=== PATIENT | male | born 1995 | race Two or more races ===

== ENCOUNTER 2023-06-27 07:48 | Emergency (ER) | payer OTHER, MEDICAID ==
[~2023-06-27] VITALS: Ht 182.9 cm; Wt 114.3 kg
[2023-06-27 09:48] LABS: Basophils # (auto) 0 10 ^3/uL (0-0.2); Basophils % (auto) 0.5 % (0.0-2.0); Eosinophils # (auto) 0.3 10 ^3/uL (0-0.8); Eosinophils % (auto) 3.8 % (0.0-7.0); Hematocrit 48.2 % (41.0-53.0); Hemoglobin 16.4 g/dL (13.5-17.5); Lymphocytes # (auto) 2.7 10 ^3/uL (0.4-5.4); Lymphocytes % (auto) 38.1 % (10.0-50.0); Mean Corpuscular Hemoglobin 29.5 pg (28.0-32.0); Mean Corpuscular Hgb Conc. 34.1 g/dL (32.0-36.0); Mean Corpuscular Volume 86.5 fL (80.0-100.0); Monocytes # (auto) 0.4 10 ^3/uL (0-1.3); Neutrophils # (auto) 3.7 10 ^3/uL (1.6-8.6); Neutrophils % (auto) 51.6 % (37.0-80.0); Nucleated Red Blood Cells % 0.4 %; Red Blood Cells 5.57 10^6/uL (4.5-5.90); Red Cell Distribution Width 13.4 % (11.8-14.3); White Blood Cell 7.1 10^3/uL (4.4-10.8)
[2023-06-27 10:32] LABS: Alanine Aminotransferase 33 U/L (7-40); Albumin 4.7 g/dL (3.2-4.8); Alkaline Phosphatase 87 U/L (46-116); Anion Gap 6.4 (5-15); Aspartate Aminotransferase 17 U/L (13-40); BUN/Creatinine Ratio 10.3 (10.0-20.0); Blood Urea Nitrogen 8 mg/dL (9-23); Calcium 9.4 mg/dL (8.5-10.1); Carbon Dioxide 27.6 mmol/L (20-30); Chloride 106 mmol/L (98-107); Glucose 101 mg/dL (74-106); Potassium 3.8 mmol/L (3.5-5.1); Sodium 140 mmol/L (136-145); Total Protein 7.3 g/dL (5.7-8.2)
[2023-06-27] MEDS ORDERED: FAMOTIDINE INJECTION 40 MG in SODIUM CHL 0.9% 100 ML IV ONE (10:45)
[2023-06-27] MEDS ORDERED: PANTOPRAZOLE 40mg/50ML NS AE 50 ML IV ONE (11:00)
[2023-06-27] MEDS ORDERED: PANTOPRAZOLE 80 MG in SODIUM CHL 0.9% 100 ML IV ONE (11:00)
[2023-06-27 11:08] LABS: INR 1.03 (0.9-1.15); Prothrombin Time 10.8 sec (9.3-11.8)
[2023-06-27 14:00] VITALS: BP 136/73; PULSE 87; RESP 16; O2SAT 95
[2023-06-27] MEDS ORDERED: CIME-52 PO (16:14)
[2023-06-27] MEDS ORDERED: ZOFR4T PO (16:14)
== END 2023-06-27 17:00 | disposition home or self-care (01) ==
LOC: ER 07:48
DX: K92.1 Melena (principal); R10.13 Epigastric pain; Z88.2 Allergy status to sulfonamides
CPT/HCPCS: 36415; 71045; 74176; 80053; 83690; 85025; 85610; C9113; J3490

== ENCOUNTER 2024-08-30 02:51 | Inpatient (IN) | payer OTHER, MEDICAID ==
[~2024-08-30] VITALS: Ht 182.9 cm; Wt 106.0 kg
[2024-08-30] VITALS (7 sets, daily range): BP systolic 111–123; BP diastolic 68–69; PULSE 61–89; RESP 15–20; TEMP 97.9–98.8; O2SAT 96–97
[~2024-08-30 02:51] MED LIST: CIME-52 PO; ZOFR4T PO
--- NOTE | 2024-08-30 03:05 | ED.PDOC ---
General HPI Comments A 29 year old male presents to the ED with the chief complaint of RUQ pain onset today. Patient states he had In n Out for dinner and began playing video games when he began experiencing RUQ pain that radiates to his RT flank, nausea and vomiting. Patient tried to have a bowel movement but was not able to due to the pain. He denies any past medical history. No other symptoms or modifying factors present at this time. Chief Complaint: Flank Pain Time Seen by MD: 02:58 Primary Care Provider: ARNOLD Wyman notes: Medications, Allergies Allergies: Coded Allergies: Sulfa Antibiotics (Verified Allergy, Severe, 12/19/20) Home Meds Active Scripts Ondansetron Odt 4MG Tab (ZOFRAN PO) 4 Mg Tb, 4 MG PO Q8HPRN PRN for 7 Days, #21 TAB ODT TAB-DISSOLVE IN MOUTH, THEN SWALLOW Prov:OLIVIA DOMINGO MD 06/27/23 Cimetidine (Cimetidine) 400 Mg Tab, 400 MG PO [id number] PRN for 15 Days, #30 TAB Prov:OLIVIA DOMINGO MD 06/27/23 Mode of Arrival: Ambulatory Severity: Moderate Timing: Hours Duration: Since onset Prehospital treatment: None Location: Abdomen, (R) Flank associated signs and symptoms: Abdominal Pain, Nausea, Vomiting, Flank Pain Past Medical History PAST MEDICAL HISTORY: Denies Family History Family History: Reviewed,noncontributory to illness Social History Smoker: Non-Smoker Alcohol: Occasionally Drugs: Denies Drug Use Lives In: Home Constitutional: denies: chills, diaphoresis, fatigue, fever, malaise, sweats, weakness, others EENTM: denies: blurred vision, double vision, ear bleeding, ear discharge, ear drainage, ear pain, ear ringing, eye pain, eye redness, hearing loss, mouth pain, mouth swelling, nasal discharge, nose bleeding, nose congestion, nose pain, photophobia, tearing, throat pain, throat swelling, voice changes, others Respiratory: denies: cough, hemoptysis, orthopnea, SOB at rest, shortness of breath, SOB with excertion, stridor, wheezing, others Cardiovascular: denies: chest pain, dizzy spells, diaphoresis, Dyspnea on exertion, edema, irregular heart beat, left arm pain, lightheadedness, palpitations, PND, syncope, others Gastrointestinal: reports: abdominal pain, nausea, vomiting; denies: abdomen distended, blood streaked bowels, constipated, diarrhea, dysphagia, difficulty swallowing, hematemesis, melena, poor appetite, poor fluid intake, rectal bleeding, rectal pain, others Genitourinary: reports: flank pain; denies: burning, dysuria, frequency, hematuria, incontinence, penile discharge, penile sore, pain, testicle pain, testicle swelling, urgency, others Neurological: denies: dizziness, fainting, headache, left sided numbness, left sided weakness, numbness, paresthesia, pre-existing deficit, right sided numbness, right sided weakness, seizure, speech problems, tingling, tremors, weakness, others Musculoskeletal: denies: back pain, gout, joint pain, joint swelling, muscle pain, muscle stiffness, neck pain, others Integumetry: denies: bruises, change in color, change in hair/nails, dryness, laceration, lesions, lumps, rash, wounds, others Allergic/Immunocompromised: denies: Difficulty Healing, Frequent Infections, Hives, Itching, others Hematologic/Lymphatic: denies: anemia, blood clots, easy bleeding, easy bruising, swollen glands, others Endocrine: denies: excessive hunger, excessive sweating, excessive thirst, excessive urination, flushing, intolerance to cold, intolerance to heat, unexplained weight gain, unexplained weight loss, others Psychiatric: denies: anxiety, bipolar disorder, depression, hopeless, panic disorder, schizophrenia, sleepless, suicidal, others All Other Systems: Reviewed and Negative Physical Exam General Appearance: Moderate Distress, Normal, Other (appears uncomfortable) HEENT: Normal ENT Inspection, Pharynx Normal, TMs Normal Neck: Full Range of Motion, Non-Tender, Normal, Normal Inspection Respiratory: Chest Non-Tender, Lungs Clear, No Accessory Muscle Use, No Respiratory Distress, Normal Breath Sounds Cardiovascular: No Edema, No JVD, No Murmur, No Gallop, Normal Peripheral Pulses, Regular Rate/Rhythm Breast Exam: Deferred Gastrointestinal: No Organomegaly, Non Tender, No Pulsatile Mass, Normal Bowel Sounds, Soft Genitalia: Deferred Pelvic: Deferred Rectal: Deferred Extremities: No calf tenderness, Normal capillary refill, Normal inspection, Normal range of motion, Non-tender, No pedal edema Musculoskeletal : Apperance: Normal Neurologic: Alert, bandmill operator II-XII nml as Tested, No Motor Deficits, Normal Affect, Normal Mood, No Sensory Deficits Cerebellar Function: Normal Reflexes: Normal Skin: Dry, Normal Color, Warm Lymphatic: No Adenopathy Was a procedure done? Was a procedure done?: No Differential Diagnosis Kidney stone (Female): N/A Kidney stone (Male): Pyelonephritis, Urinary obstruction, Urolithiasis, Urinary tract infection Penile/Scrotal: N/A Urinary Problem (Male): N/A Urinary Problem (Female): N/A X-Ray, Labs, Meds, VS Vital Signs Date Time Temp Pulse Resp B/P (MAP) Pulse Ox O2 Delivery O2 Flow Rate FiO2 08/30/24 03:10 97.6 89 20 128/94 (105) 97 97.6 08/30/24 03:10 89 20 97 Room Air* 0 21 08/30/24 03:00 97.6 89 20 128/94 (105) 97 Lab Test 08/30/24 03:29 08/30/24 03:00 Range/Units White Blood Count 11.1 H 4.4-10.8 10^3/uL Red Blood Count 5.54 4.5-5.90 10^6/uL Hemoglobin 16.7 13.5-17.5 g/dL Hematocrit 48.5 41.0-53.0 % Mean Corpuscular Volume 87.7 80.0-100.0 fL Mean Corpuscular Hemoglobin 30.1 28.0-32.0 pg Mean Corpuscular Hemoglobin Concent 34.3 32.0-36.0 g/dL Red Cell Distribution Width 13.5 11.8-14.3 % Platelet Count 317 140-450 10^3/uL Mean Platelet Volume 7.7 6.9-10.8 fL Neutrophils (%) (Auto) 80.8 H 37.0-80.0 % Lymphocytes (%) (Auto) 14.3 10.0-50.0 % Monocytes (%) (Auto) 3.2 0.0-12.0 % Eosinophils (%) (Auto) 1.4 0.0-7.0 % Basophils (%) (Auto) 0.3 0.0-2.0 % Neutrophils # (Auto) 8.9 H 1.6-8.6 10 ^3/uL Lymphocytes # (Auto) 1.6 0.4-5.4 10 ^3/uL Monocytes # (Auto) 0.4 0-1.3 10 ^3/uL Eosinophils # (Auto) 0.2 0-0.8 10 ^3/uL Basophils # (Auto) 0 0-0.2 10 ^3/uL Nucleated Red Blood Cells 0.0 % Sodium Level 139 136-145 mmol/L Potassium Level 3.4 L 3.5-5.1 mmol/L Chloride Level 106 98-107 mmol/L Carbon Dioxide Level 24 20-31 mmol/L Anion Gap 9 5-15 Blood Urea Nitrogen 8 L 9-23 mg/dL Creatinine 0.92 0.700-1.30 mg/dL Glomerular Filtration Rate Calc 116 >90 mL/min BUN/Creatinine Ratio 8.7 L 10.0-20.0 Serum Glucose 123 H 74-106 mg/dL Calcium Level 10.0 8.7-10.4 mg/dL Urine Color Yellow Yellow Urine Clarity Turbid H Clear Urine pH 5.0 5.0-9.0 Urine Specific [place] 1.035 1.001-1.035 Urine Protein 1+ H Negative Urine Ketones Negative Negative Urine Blood 2+ H Negative /uL Urine Nitrite Negative Negative Urine Bilirubin Negative Negative Urine Urobilinogen 2 H Negative mg/dL Urine Leukocyte Esterase Negative Negative /uL Urine RBC 1 0 - 3 /hpf Urine WBC 1 0 - 3 /hpf Urine Squamous Epithelial Cells Few <5 /hpf Urine Bacteria None seen None Seen /hpf Urine Mucus Moderate None Seen Urine Glucose Normal Normal mg/dL Current Medications Medications (Trade) Dose Ordered Sig/Incoencio Route Start Time Stop Time Status Last Admin Sodium Chloride 1,000 ml @ 1,000 mls/hr Q1H ONCE IV 08/30/24 03:00 08/30/24 03:59 DC 08/30/24 03:09 Ondansetron HCl (Zofran) 4 mg ONCE ONCE IV 08/30/24 03:00 08/30/24 03:03 DC 08/30/24 03:09 Ketorolac Tromethamine (Toradol Injection) 15 mg ONCE ONCE IV 08/30/24 03:00 08/30/24 03:03 DC 08/30/24 03:09 Tamsulosin HCl (Flomax) 0.4 mg ONCE ONCE PO 08/30/24 03:00 08/30/24 03:03 DC 08/30/24 03:09 Time of 1ST Reevaluation: 03:28 Reevaluation 1ST: Unchanged Patient Education/Counseling: Diagnosis, Treatment, Prognosis Family Education/Counseling: No Family Present Departure 1 Departure Time of Disposition: 04:45 (Patient presented with abdominal pain that was concerning for possible appendicits, gastritis, cholecystitis, colitis, gastroenteritis, sbo, or orther possible surgical emergency. Data: 1. I ordered and reviewed the result of at least 3 labs including a CBC, BMP, and Urinalysis. 2. I independently interpreted the following tests: CT Abdoment and Pelvis is concerning for a large right kidney stone _ .Risk:This patient has a high risk of morbidity due to further diagnostic testing or treatment and may suffer from an acute abdominal process disorder. Workup reveals a large right kidney stone and hydronephrosis. and patient should be admitted for further workup. and possible expert consultation. ) Impression: Primary Impression: Renal colic on right side Additional Impressions: Hydronephrosis Qualified Codes: N13.2 - Hydronephrosis with renal and ureteral calculous obstruction Flank pain Disposition: ADMITTED INPATIENT Admit to: Med Surg Condition: Serious Critical Care Note Critical Care Time?: Yes Critical care comment: Intractable abdominal pain Authorized and Performed by: Marcia Peters MD Total critical care time: Approximately 34 minutes Due to a high probability of clinically significant, life threatening deterioration, the patient required my highest level of preparedness to intervene emergently and I personally spent this critical care time directly and personally managing the patient. This critical care time included obtaining a history; examining the patient; pulse oximetry; ordering and review of studies; arranging urgent treatment with development of a management plan; evaluation of patient's response to treatment; frequent reassessment; and, discussions with other providers. This critical care time was performed to assess and manage the high probability of imminent, life-threatening deterioration that could result in multi-organ failure. It was exclusive of separately billable procedures and treating other patients and teaching time. Please see my other sections and the rest of the note for further information on patient assessment and treatment. Stability Stability form required: No I personally scribed for MARCIA PETERS MD ([email or web address]) on 08/30/24 at 03:05. Electronically submitted by Lisa Garcia ([email or web address]). MARCIA PETERS MD Aug 30, 2024 03:05
[2024-08-30] MEDS: TAMSULOSIN HYDROCHLORIDE 0.4 MG CAP PO ONE (03:09)
[2024-08-30] MEDS: ONDANSETRON HCL 4 MG/2 ML VIAL IV ONE ×2 (03:09→10:44)
[2024-08-30] MEDS: SODIUM CHLORIDE 0.9% 1,000 ML IV ONE (03:09)
[2024-08-30] MEDS: KETOROLAC TROMETH 30 MG/ML 1ML VIAL IV ONE ×2 (03:09→10:44)
[2024-08-30 03:11] LABS: Urine Bacteria None Seen /hpf (None Seen)
[2024-08-30 03:27] LABS: Urine Blood 2+ /uL (Negative); Urine Clarity Turbid (Clear); Urine Color Yellow (Yellow); Urine Mucus MODERATE (None Seen); Urine Protein, UAD 1+ (Negative); Urine Specific Gravity 1.035 (1.001-1.035); Urine Urobilinogen 2 mg/dL (Negative); Urine WBC 1 /hpf (0 - 3)
[2024-08-30 03:55] LABS: Basophils # (auto) 0 10 ^3/uL (0-0.2); Basophils % (auto) 0.3 % (0.0-2.0); Eosinophils # (auto) 0.2 10 ^3/uL (0-0.8); Eosinophils % (auto) 1.4 % (0.0-7.0); Hematocrit 48.5 % (41.0-53.0); Hemoglobin 16.7 g/dL (13.5-17.5); Lymphocytes # (auto) 1.6 10 ^3/uL (0.4-5.4); Lymphocytes % (auto) 14.3 % (10.0-50.0); Mean Corpuscular Hemoglobin 30.1 pg (28.0-32.0); Mean Corpuscular Hgb Conc. 34.3 g/dL (32.0-36.0); Mean Corpuscular Volume 87.7 fL (80.0-100.0); Monocytes # (auto) 0.4 10 ^3/uL (0-1.3); Monocytes % (auto) 3.2 % (0.0-12.0); Neutrophils # (auto) 8.9 10 ^3/uL (1.6-8.6); Neutrophils % (auto) 80.8 % (37.0-80.0); Platelet Count (auto) 317 10^3/uL (140-450); Red Blood Cells 5.54 10^6/uL (4.5-5.90); Red Cell Distribution Width 13.5 % (11.8-14.3); White Blood Cell 11.1 10^3/uL (4.4-10.8)
[2024-08-30 04:11] LABS: Chloride 106 mmol/L (98-107); Potassium 3.4 mmol/L (3.5-5.1); Sodium 139 mmol/L (136-145)
[2024-08-30 04:12] LABS: Anion Gap 9 (5-15); Carbon Dioxide 24 mmol/L (20-31)
[2024-08-30 04:17] LABS: BUN/Creatinine Ratio 8.7 (10.0-20.0); Blood Urea Nitrogen 8 mg/dL (9-23); Glucose 123 mg/dL (74-106)
--- NOTE | 2024-08-30 04:36 | DVH ---
Examination: ABPL CLINICAL INDICATION: right flank pain COMPARISON: None. CONTRAST USED: None. TECHNIQUE: A plain CT study of the abdomen and pelvis was performed with 5 mm thin slices, following ALARA (As Low As Reasonably Achievable) principles. Multiplanar reconstructions were obtained. FINDINGS: CT Abdomen: Lung Base: The evaluation of the lung bases demonstrates no focal infiltrates or pleural effusion. Unenhanced Liver: The liver is normal in size, with no evidence of intrahepatic biliary dilatation. Unenhanced Spleen: There is borderline splenomegaly. The limitations of the unenhanced study should be considered in evaluating the spleen. Gallbladder: The gallbladder is normal, with no intrinsic abnormalities. The common bile duct is no t dilated. Unenhanced Pancreas: The pancreas is normal in size and shape, with no focal lesions seen. The perip ancreatic fat planes are preserved. Retroperitoneum: Both adrenal glands are normal in size and morphology. No significant retroperiton eal lymphadenopathy is present. The kidneys are normal in size, however, a 7 x 4 mm calculus is observed in the right upper ureter, s een on (image #52 of series 2). This is associated with moderate hydroureter and hydronephrosis prox imal to the calculus on the right side. Stomach and Bowel: The bowel loops are unremarkable, with no evidence of ascites. Skeletal System: Mild scoliosis of the lumbar spine is observed. The lumbar spine is otherwise unre markable. The dorsolumbar spine and pelvic bones show no other abnormalities. Vessels: The aorta, IVC, and mesenteric vessels cannot be fully evaluated on this unenhanced CT scan . CT Pelvis: Appendix: The appendix is visualized and appears unremarkable. Colon: Mild colonic diverticulosis is noted without signs of diverticulitis. Bladder: The urinary bladder is empty and unremarkable. Pelvic Organs: The prostate appears normal. No pelvic lymphadenopathy or abnormal fluid collection is identified. IMPRESSION: 1. Approximately 7 x 4 mm calculus in the right upper ureter with associated moderate hydroureter an d hydronephrosis on the right side. 2. Borderline splenomegaly, with limitations due to the unenhanced nature of the scan. 3. Mild colonic diverticulosis without signs of diverticulitis. 4. Mild scoliosis of the lumbar spine. Electronically Signed 08/30/2024 04:29 Jose Arriola
[2024-08-30] MEDS: MORPHINE SULFATE 4 MG/ML SYR/VIAL IV ONE (05:10)
[2024-08-30] MEDS: SODIUM CHLORIDE 0.9% 1,000 ML IV SCH (10:45)
[2024-08-30] MEDS ORDERED: ONDANSETRON HCL 4 MG/2 ML VIAL IV PRN (10:45)
--- NOTE | 2024-08-30 10:45 | DVHHP2 ---
History of Present Illness Reason for Visit: Right flank pain History of Present Illness This 29-year-old male with no significant past medical history, presented in ED with a chief complaint of right flank pain. The patient reports symptoms started last night, was having hard time urination when something "pop" on right side was heard while voiding. Denies fever, chills, hematuria, or other acute symptoms. Past Medical History Denies Past Surgical History Denies Family History Reviewed, non-contributory to the management of this case. Past Social History The patient lives at home, denies smoking, alcohol or illicit drugs abuse. Review of Systems Constitutional: Yes: Malaise; No: Fever, Chills, Sweats, Weakness, Other Eyes: No: Pain, Vision change, Conjunctivae inflammation, Eyelid inflammation, Other, Redness ENT: No: Ear pain, Ear discharge, Nose pain, Nose discharge, Nose congestion, Mouth pain, Mouth swelling, Throat pain, Throat swelling, Other Respiratory: No: Cough, Dry, Shortness of breath, SOB with excertion, Wheezing, Hemoptysis, Pleuritic Pain, Sputum, Wheezing, Other Cardiovascular: No: Chest Pain, Palpitations, Orthopnea, Paroxysmal Noc. Dyspnea, Edema, Lt Headedness, Other Gastrointestinal: No: Nausea, Vomiting, Abdominal Pain, Diarrhea, Constipation, Melena, Hematochezia, Other Genitourinary: No Dysuria, No Frequency, No Incontinence; Hematuria; No Retention; Other (Flank pain) Musculoskeletal: No: other, neck pain, shoulder pain, arm pain, back pain, hand pain, leg pain, foot pain Skin: No: Rash, Lesions, Jaundice, Bruising, Other Allergies: Coded Allergies: Sulfa Antibiotics (Verified Allergy, Severe, 12/19/20) Exam Vital Signs Vital Signs Date Time Temp Pulse Resp B/P (MAP) Pulse Ox O2 Delivery O2 Flow Rate FiO2 08/30/24 09:00 87 18 127/87 (100) 97 08/30/24 07:20 Room Air* 0 21 08/30/24 05:00 98.7 98.7 General Appearance: Alert, Oriented X3, Cooperative, mild distress HEENT: Atraumatic, PERRLA, EOMI Respiratory: Clear to auscultation, Normal air movement Cardiovascular: Regular rate, Normal S1, Normal S2 Abdominal: Normal bowel sounds, Soft, No tenderness, Other (Right CVA tenderness) Extremities: No clubbing, No cyanosis, No edema Skin: No rashes, No breakdown, No significant lesion Neuro: Normal gait, Normal speech, Strength at 5/5 X4 ext Psych/Mental Status: Mental status NL Labs/Xrays Labs Test 08/30/24 03:29 08/30/24 03:00 Range/Units White Blood Count 11.1 H 4.4-10.8 10^3/uL Red Blood Count 5.54 4.5-5.90 10^6/uL Hemoglobin 16.7 13.5-17.5 g/dL Hematocrit 48.5 41.0-53.0 % Mean Corpuscular Volume 87.7 80.0-100.0 fL Mean Corpuscular Hemoglobin 30.1 28.0-32.0 pg Mean Corpuscular Hemoglobin Concent 34.3 32.0-36.0 g/dL Red Cell Distribution Width 13.5 11.8-14.3 % Platelet Count 317 140-450 10^3/uL Mean Platelet Volume 7.7 6.9-10.8 fL Neutrophils (%) (Auto) 80.8 H 37.0-80.0 % Lymphocytes (%) (Auto) 14.3 10.0-50.0 % Monocytes (%) (Auto) 3.2 0.0-12.0 % Eosinophils (%) (Auto) 1.4 0.0-7.0 % Basophils (%) (Auto) 0.3 0.0-2.0 % Neutrophils # (Auto) 8.9 H 1.6-8.6 10 ^3/uL Lymphocytes # (Auto) 1.6 0.4-5.4 10 ^3/uL Monocytes # (Auto) 0.4 0-1.3 10 ^3/uL Eosinophils # (Auto) 0.2 0-0.8 10 ^3/uL Basophils # (Auto) 0 0-0.2 10 ^3/uL Nucleated Red Blood Cells 0.0 % Sodium Level 139 136-145 mmol/L Potassium Level 3.4 L 3.5-5.1 mmol/L Chloride Level 106 98-107 mmol/L Carbon Dioxide Level 24 20-31 mmol/L Anion Gap 9 5-15 Blood Urea Nitrogen 8 L 9-23 mg/dL Creatinine 0.92 0.700-1.30 mg/dL Glomerular Filtration Rate Calc 116 >90 mL/min BUN/Creatinine Ratio 8.7 L 10.0-20.0 Serum Glucose 123 H 74-106 mg/dL Calcium Level 10.0 8.7-10.4 mg/dL Urine Color Yellow Yellow Urine Clarity Turbid H Clear Urine pH 5.0 5.0-9.0 Urine Specific [place] 1.035 1.001-1.035 Urine Protein 1+ H Negative Urine Ketones Negative Negative Urine Blood 2+ H Negative /uL Urine Nitrite Negative Negative Urine Bilirubin Negative Negative Urine Urobilinogen 2 H Negative mg/dL Urine Leukocyte Esterase Negative Negative /uL Urine RBC 1 0 - 3 /hpf Urine WBC 1 0 - 3 /hpf Urine Squamous Epithelial Cells Few <5 /hpf Urine Bacteria None seen None Seen /hpf Urine Mucus Moderate None Seen Urine Glucose Normal Normal mg/dL PROCEDURE(s): ABPL - CT AB PEL WO CON-NO ORAL OR IV REASON: right flank pain ORDER NUMBER(s): [id number], ACCESSION NUMBER(s): [id number] Examination: ABPL CLINICAL INDICATION: right flank pain COMPARISON: None. CONTRAST USED: None. TECHNIQUE: A plain CT study of the abdomen and pelvis was performed with 5 mm thin slices, following ALARA (As Low As Reasonably Achievable) principles. Multiplanar reconstructions were obtained. FINDINGS: CT Abdomen: Lung Base: The evaluation of the lung bases demonstrates no focal infiltrates or pleural effusion. Unenhanced Liver: The liver is normal in size, with no evidence of intrahepatic biliary dilatation. Unenhanced Spleen: There is borderline splenomegaly. The limitations of the unenhanced study should be considered in evaluating the spleen. Gallbladder: The gallbladder is normal, with no intrinsic abnormalities. The common bile duct is not dilated. Unenhanced Pancreas: The pancreas is normal in size and shape, with no focal lesions seen. The peripancreatic fat planes are preserved. Retroperitoneum: Both adrenal glands are normal in size and morphology. No significant retroperitoneal lymphadenopathy is present. The kidneys are normal in size, however, a 7 x 4 mm calculus is observed in the right upper ureter, seen on (image #52 of series 2). This is associated with moderate hydroureter and hydronephrosis proximal to the calculus on the right side. Stomach and Bowel: The bowel loops are unremarkable, with no evidence of ascites. Skeletal System: Mild scoliosis of the lumbar spine is observed. The lumbar spine is otherwise unremarkable. The dorsolumbar spine and pelvic bones show no other abnormalities. Vessels: The aorta, IVC, and mesenteric vessels cannot be fully evaluated on this unenhanced CT scan. CT Pelvis: Appendix: The appendix is visualized and appears unremarkable. Colon: Mild colonic diverticulosis is noted without signs of diverticulitis. Bladder: The urinary bladder is empty and unremarkable. Pelvic Organs: The prostate appears normal. No pelvic lymphadenopathy or abnormal fluid collection is identified. IMPRESSION: 1. Approximately 7 x 4 mm calculus in the right upper ureter with associated moderate hydroureter and hydronephrosis on the right side. 2. Borderline splenomegaly, with limitations due to the unenhanced nature of the scan. 3. Mild colonic diverticulosis without signs of diverticulitis. Assessment/Plan Assessment/Plan # right flank pain # right hydronephrosis # acute cystitis Admit to medical unit Pain control--nsaids, morphine Alpha carol --tamsulosin Urology consult Urine and blood culture Ceftriaxone until cultures # nausea and vomiting Antiemetic IVF # obesity Lifestyle modification counseled with diet, regular exercise, weight loss Medical plan discussed with patient and RN Plan discussed with: Patient Date of Service: Aug 30, 2024 Billing Provider: LILIAN BARRETT Common Visit Codes: 45068-[id number] INP/OBS CARE (HIGH) LILIAN BARRETT Aug 30, 2024 10:45
[2024-08-30] MEDS: cefTRIAXone 1GM/50ML D5W 50 ML IV ONE (17:02)
[2024-08-30] MEDS: TAMSULOSIN HYDROCHLORIDE 0.4 MG CAP PO SCH (18:15)
[2024-08-30] MEDS: MORPHINE SULFATE 4 MG/ML SYR/VIAL IV PRN (18:21)
[2024-08-30] MEDS: KETOROLAC TROMETH 30 MG/ML 1ML VIAL IV PRN (23:28)
[2024-08-31 01:00] VITALS: BP 111/65; PULSE 67; RESP 18; TEMP 98.4; O2SAT 97
[2024-08-31 05:00] VITALS: BP 99/55; PULSE 64; RESP 18; TEMP 98.2; O2SAT 99
[2024-08-31 06:42] LABS: Basophils # (auto) 0 10 ^3/uL (0-0.2); Basophils % (auto) 0.4 % (0.0-2.0); Eosinophils # (auto) 0.3 10 ^3/uL (0-0.8); Eosinophils % (auto) 3.2 % (0.0-7.0); Hematocrit 41.7 % (41.0-53.0); Hemoglobin 14.1 g/dL (13.5-17.5); Lymphocytes # (auto) 2.6 10 ^3/uL (0.4-5.4); Lymphocytes % (auto) 31.6 % (10.0-50.0); Mean Corpuscular Hemoglobin 29.9 pg (28.0-32.0); Mean Corpuscular Hgb Conc. 33.9 g/dL (32.0-36.0); Mean Corpuscular Volume 88.2 fL (80.0-100.0); Monocytes # (auto) 0.7 10 ^3/uL (0-1.3); Neutrophils # (auto) 4.6 10 ^3/uL (1.6-8.6); Neutrophils % (auto) 56.8 % (37.0-80.0); Nucleated Red Blood Cells % 0.1 %; Platelet Count (auto) 261 10^3/uL (140-450); Red Blood Cells 4.73 10^6/uL (4.5-5.90); Red Cell Distribution Width 13.3 % (11.8-14.3); White Blood Cell 8.2 10^3/uL (4.4-10.8)
[2024-08-31 07:30] VITALS: RESP 16
[2024-08-31] MEDS: cefTRIAXone 1GM/50ML D5W 50 ML IV SCH (08:59)
--- NOTE | 2024-08-31 10:15 | DVHINCON2 ---
Date of service: Aug 31, 2024 Referring Physician hospitalist Reason for Consultation obstructing ureteral stone History of Present Illness History Source: Patient, RN Notes, MD Notes Exam Limitations: No limitations HPI 30 yo male with right flank pain associated with n/v since last night. C/o dysuria as well. CT A/P NC shows right sided mid ureteral calculus 7x4 mm with mild to moderated upstream hydronephrosis. Home Meds Active Scripts Ondansetron Odt 4MG Tab (ZOFRAN PO) 4 Mg Tb, 4 MG PO Q8HPRN PRN for 7 Days, #21 TAB ODT TAB-DISSOLVE IN MOUTH, THEN SWALLOW Prov:OLIVIA DOMINGO MD 06/27/23 Cimetidine (Cimetidine) 400 Mg Tab, 400 MG PO [id number] PRN for 15 Days, #30 TAB Prov:OLIVIA DOMINGO MD 06/27/23 Past Medical History Patient Family History: Patient reports no known family medical history. Review of Systems Gastrointestinal: Nausea, Vomiting Genitourinary: Dysuria, Pain H&P Exam Vital Signs Vital Signs Date Time Temp Pulse Resp B/P (MAP) Pulse Ox O2 Delivery O2 Flow Rate FiO2 08/31/24 05:00 98.2 64 18 99/55 (70) 99 98.2 08/30/24 20:00 Room Air* 0 21 General Appeara: Well developed, Well nourished, Normal Appearance Pulmonary/Respiratory: Normal inspection, Normal breath sounds, Chest non- tender, Lungs clear Cardiovascular/Chest: Normal inspection, Regular rate, Normal Rhythm Neuro/Mental St: Alert, Oriented Appearance: Appropriate appearance, Appropriate insight Eye contact/ Speech: Cooperative, Good eye contact, Normal speech Skin Exam: Normal inspection, Normal color, Warm/dry Labs/Xrays [address] [address] Ph: [phone] DIAGNOSTIC IMAGING Diagnostic Imaging Report : [id number] Signed PATIENT: PAKO KO ACCT: [id number] UNIT: [id number] : 1995 LOC: [facility] ROOM / BED: 0244ADS / 5 AGE / SEX: 29 / M ADM STATUS: ADM IN SERVICE 1015 ORDERING PHYSICIAN: ROSA HENNESSY NP PROCEDURE(s): KIDUS - KIDNEY REASON: hydronephrosis ORDER NUMBER(s): [id number], ACCESSION NUMBER(s): [id number] RENAL ULTRASOUND CLINICAL HISTORY: hydronephrosis TECHNIQUE: Multiple ultrasound images of the kidneys and bladder were obtained. COMPARISON: None FINDINGS: There is a 7 mm echogenic focus at the right ureterovesical junction. A small calculus is not excluded. The right ureteral jet is not seen. There is mild right hydronephrosis. There is no sonographic evidence of nephrolithiasis. The right kidney measures 12.3 cm in length. The left kidney measures 12.4 cm. There is no left renal nephrolithiasis or hydronephrosis. The bladder appears within normal limits without significant post void residual. The calculated prostate volume is 24.3 cc. IMPRESSION: 1. 7 mm echogenic focus of the right ureterovesical junction may represent a small calculus. 2. Mild right renal hydronephrosis. HS:Y ATED BY: ZIA BARRIOS MD DICTATED DATE/TIME: 08/31/241132 SIGNED BY: ZIA BARRIOS MD SIGNED DATE/TIME: 08/31/24 113 CC: [place] [address] Ph: [phone] DIAGNOSTIC IMAGING Diagnostic Imaging Report : [id number] Signed PATIENT: PAKO KO ACCT: [id number] UNIT: [id number] : 1995 LOC: ER ROOM / BED: / AGE / SEX: 29 / M ADM STATUS: REG ER SERVICE 0300 ORDERING PHYSICIAN: MARCIA LANTIGUA MD PROCEDURE(s): ABPL - CT AB PEL WO CON-NO ORAL OR IV REASON: right flank pain ORDER NUMBER(s): [id number], ACCESSION NUMBER(s): [id number] Examination: ABPL CLINICAL INDICATION: right flank pain COMPARISON: None. CONTRAST USED: None. TECHNIQUE: A plain CT study of the abdomen and pelvis was performed with 5 mm thin slices, following ALARA (As Low As Reasonably Achievable) principles. Multiplanar reconstructions were obtained. FINDINGS: CT Abdomen: Lung Base: The evaluation of the lung bases demonstrates no focal infiltrates or pleural effusion. Unenhanced Liver: The liver is normal in size, with no evidence of intrahepatic biliary dilatation. Unenhanced Spleen: There is borderline splenomegaly. The limitations of the unenhanced study should be considered in evaluating the spleen. Gallbladder: The gallbladder is normal, with no intrinsic abnormalities. The common bile duct is not dilated. Unenhanced Pancreas: The pancreas is normal in size and shape, with no focal lesions seen. The peripancreatic fat planes are preserved. Retroperitoneum: Both adrenal glands are normal in size and morphology. No significant retroperitoneal lymphadenopathy is present. The kidneys are normal in size, however, a 7 x 4 mm calculus is observed in the right upper ureter, seen on (image #52 of series 2). This is associated with moderate hydroureter and hydronephrosis proximal to the calculus on the right side. Stomach and Bowel: The bowel loops are unremarkable, with no evidence of ascites. Skeletal System: Mild scoliosis of the lumbar spine is observed. The lumbar spine is otherwise unremarkable. The dorsolumbar spine and pelvic bones show no other abnormalities. Vessels: The aorta, IVC, and mesenteric vessels cannot be fully evaluated on this unenhanced CT scan. CT Pelvis: Appendix: The appendix is visualized and appears unremarkable. Colon: Mild colonic diverticulosis is noted without signs of diverticulitis. Bladder: The urinary bladder is empty and unremarkable. Pelvic Organs: The prostate appears normal. No pelvic lymphadenopathy or abnormal fluid collection is identified. IMPRESSION: 1. Approximately 7 x 4 mm calculus in the right upper ureter with associated moderate hydroureter and hydronephrosis on the right side. 2. Borderline splenomegaly, with limitations due to the unenhanced nature of the scan. 3. Mild colonic diverticulosis without signs of diverticulitis. 4. Mild scoliosis of the lumbar spine. Electronically Signed 08/30/2024 04:29 Jose Arriola ATED BY: VIKY UGALDE MD DICTATED DATE/TIME: 08/30/24428 SIGNED BY: VIKY UGALDE MD SIGNED DATE/TIME: 08/30/24428 CC: Labs Test 08/31/24 06:07 08/30/24 03:29 08/30/24 03:00 Range/Units White Blood Count 8.2 # 4.4-10.8 10^3/uL Red Blood Count 4.73 4.5-5.90 10^6/uL Hemoglobin 14.1 # 13.5-17.5 g/dL Hematocrit 41.7 # 41.0-53.0 % Mean Corpuscular Volume 88.2 80.0-100.0 fL Mean Corpuscular Hemoglobin 29.9 28.0-32.0 pg Mean Corpuscular Hemoglobin Concent 33.9 32.0-36.0 g/dL Red Cell Distribution Width 13.3 11.8-14.3 % Platelet Count 261 140-450 10^3/uL Mean Platelet Volume 7.5 6.9-10.8 fL Neutrophils (%) (Auto) 56.8 37.0-80.0 % Lymphocytes (%) (Auto) 31.6 10.0-50.0 % Monocytes (%) (Auto) 8.0 0.0-12.0 % Eosinophils (%) (Auto) 3.2 0.0-7.0 % Basophils (%) (Auto) 0.4 0.0-2.0 % Neutrophils # (Auto) 4.6 1.6-8.6 10 ^3/uL Lymphocytes # (Auto) 2.6 0.4-5.4 10 ^3/uL Monocytes # (Auto) 0.7 0-1.3 10 ^3/uL Eosinophils # (Auto) 0.3 0-0.8 10 ^3/uL Basophils # (Auto) 0 0-0.2 10 ^3/uL Nucleated Red Blood Cells 0.1 % Sodium Level 139 136-145 mmol/L Potassium Level 3.4 L 3.5-5.1 mmol/L Chloride Level 106 98-107 mmol/L Carbon Dioxide Level 24 20-31 mmol/L Anion Gap 9 5-15 Blood Urea Nitrogen 8 L 9-23 mg/dL Creatinine 0.92 0.700-1.30 mg/dL Glomerular Filtration Rate Calc 116 >90 mL/min BUN/Creatinine Ratio 8.7 L 10.0-20.0 Serum Glucose 123 H 74-106 mg/dL Calcium Level 10.0 8.7-10.4 mg/dL Urine Color Yellow Yellow Urine Clarity Turbid H Clear Urine pH 5.0 5.0-9.0 Urine Specific [place] 1.035 1.001-1.035 Urine Protein 1+ H Negative Urine Ketones Negative Negative Urine Blood 2+ H Negative /uL Urine Nitrite Negative Negative Urine Bilirubin Negative Negative Urine Urobilinogen 2 H Negative mg/dL Urine Leukocyte Esterase Negative Negative /uL Urine RBC 1 0 - 3 /hpf Urine WBC 1 0 - 3 /hpf Urine Squamous Epithelial Cells Few <5 /hpf Urine Bacteria None seen None Seen /hpf Urine Mucus Moderate None Seen Urine Glucose Normal Normal mg/dL Microbiology Date/Time Source Procedure Growth Status 08/30/24 03:00 Voided Urine Urine Culture - Preliminary Resulted Assessment/Plan Problem List: (1) Renal colic on right side (2) Flank pain (3) Hydronephrosis Plan expulsive measures pain control aggressive fluids stain urine renal US - check for ureteral jetting lithotripsy vs PCN TBA dependent on clinical course Plan discussed with: Patient, Other ROSA HENNESSY NP Aug 31, 2024 10:15
--- NOTE | 2024-08-31 11:34 | DVHPN2 ---
Reviewed: Care Plan, H&P, Labs, Medications, Previous Orders, Radiology Changes from previous H/P or p: No Changes Eyes: No Pain, No Vision change, No Conjunctivae inflammation, No Eyelid inflammation, No Other, No Redness ENT: No Ear pain, No Ear discharge, No Nose pain, No Nose discharge, No Nose congestion, No Mouth pain, No Mouth swelling, No Throat pain, No Throat swelling, No Other Cardiovascular: No Chest Pain, No Palpitations, No Orthopnea, No Paroxysmal Noc. Dyspnea, No Edema, No Lt Headedness, No Other Respiratory: No Cough, No Dry, No Shortness of breath, No SOB with excertion, No Wheezing, No Hemoptysis, No Pleuritic Pain, No Sputum, No Other Gastrointestinal: No Nausea, No Vomiting, No Abdominal Pain, No Diarrhea, No Constipation, No Melena, No Hematochezia, No Other Genitourinary: No Dysuria, No Frequency, No Incontinence; Hematuria; No Retention; Other (Flank pain) Musculoskeletal: No other, No neck pain, No shoulder pain, No arm pain, No back pain, No hand pain, No leg pain, No foot pain Skin: No Rash, No Lesions, No Jaundice, No Bruising, No Other Objective Vitals Vital Signs Date Time Temp Pulse Resp B/P (MAP) Pulse Ox O2 Delivery O2 Flow Rate FiO2 08/31/24 05:00 98.2 64 18 99/55 (70) 99 98.2 08/30/24 20:00 Room Air* 0 21 Intake/Output Intake and Output 08/31/24 07:00 Intake Total 2650 ml Output Total 300 ml Balance 2350 ml Intake Oral 1650 ml IV Total 1000 ml Output Urine Total 300 ml # Voids 4 Medications Current Medications Medications Dose Ordered Sig/Inocencio Route Start Time Stop Time Status Last Admin Dose Admin Sodium Chloride 1,000 ml @ 100 mls/hr Q10H IV 08/30/24 10:45 08/31/24 04:52 100 MLS/HR Ondansetron HCl 4 mg Q4HP PRN IV 08/30/24 10:45 Ketorolac Tromethamine 30 mg Q6HPRN PRN IV 08/30/24 10:45 09/04/24 10:44 08/30/24 23:28 30 MG Morphine Sulfate 4 mg Q6HPRN PRN IV 08/30/24 10:45 08/31/24 00:44 4 MG Ceftriaxone Sodium 50 ml @ 100 mls/hr DAILY@09 IV 08/31/24 09:00 08/31/24 08:59 100 MLS/HR Tamsulosin HCl 0.4 mg BID PO 08/31/24 10:30 Laboratory Results Laboratory Tests 08/30/24 03:29 08/31/24 06:07 Urinalysis Test 08/30/24 03:00 Urine Color Yellow (Yellow) Urine Clarity Turbid (Clear) H Urine pH 5.0 (5.0-9.0) Urine Specific [place] 1.035 (1.001-1.035) Urine Protein 1+ (Negative) H Urine Ketones Negative (Negative) Urine Blood 2+ /uL (Negative) H Urine Nitrite Negative (Negative) Urine Bilirubin Negative (Negative) Urine Urobilinogen 2 mg/dL (Negative) H Urine Leukocyte Esterase Negative /uL (Negative) Urine RBC 1 /hpf (0 - 3) Urine WBC 1 /hpf (0 - 3) Urine Squamous Epithelial Cells Few /hpf (<5) Urine Bacteria None seen /hpf (None Seen) Urine Mucus Moderate (None Seen) Urine Glucose Normal mg/dL (Normal) Microbiology Microbiology Date/Time Source Procedure Growth Status 08/30/24 03:00 Voided Urine Urine Culture - Preliminary Resulted Labs and/or images reviewed: Labs reviewed by me, Image(s) reviewed by me Assessment/Plan Assessment/Plan Acute right renal colic Right proximal ureteral calculus 7 mm x 4 mm with right hydroureteronephrosis, renal ultrasound pending, urology consult by Dr. Fatima appreciated expulsive measures Acute dehydration: IV fluids Urine cultures negative Right kidney ultrasound pending Plan discussed with: Patient Date of Service: Aug 31, 2024 Billing Provider: ALEX ROMERO MD Common Visit Codes: [id number] INP/OBS CARE(HIGH) ALEX ROMERO MD Aug 31, 2024 11:34
--- NOTE | 2024-08-31 11:35 | DVH ---
RENAL ULTRASOUND CLINICAL HISTORY: hydronephrosis TECHNIQUE: Multiple ultrasound images of the kidneys and bladder were obtained. COMPARISON: None FINDINGS: There is a 7 mm echogenic focus at the right ureterovesical junction. A small calculus is not exclud ed. The right ureteral jet is not seen. There is mild right hydronephrosis. There is no sonographic e vidence of nephrolithiasis. The right kidney measures 12.3 cm in length. The left kidney measures 12.4 cm. There is no left renal nephrolithiasis or hydronephrosis. The bladder appears within normal limits without significant post void residual. The calculated prost ate volume is 24.3 cc. IMPRESSION: 1. 7 mm echogenic focus of the right ureterovesical junction may represent a small calculus. 2. Mild right renal hydronephrosis. HS:Y
[2024-08-31] MEDS: TAMSULOSIN HYDROCHLORIDE 0.4 MG CAP PO SCH (11:45)
[2024-08-31 13:00] VITALS: BP 108/55; PULSE 59; RESP 16; TEMP 98.3; O2SAT 96
[2024-08-31 17:28] VITALS: BP 105/64; PULSE 64; RESP 18; TEMP 98.4; O2SAT 96
[2024-08-31 21:00] VITALS: BP 96/63; PULSE 76; RESP 18; TEMP 98.8; O2SAT 96
[2024-09-01] VITALS (7 sets, daily range): BP systolic 91–119; BP diastolic 52–70; PULSE 57–80; RESP 18–20; TEMP 97.6–99.2; O2SAT 94–100
[2024-09-01] MEDS: SODIUM CHLORIDE 0.9% 1,000 ML IV SCH (01:21)
--- NOTE | 2024-09-01 10:32 | DVHPN2 ---
Reviewed: Care Plan, H&P, Labs, Medications, Previous Orders, Radiology Changes from previous H/P or p: No Changes Eyes: No Pain, No Vision change, No Conjunctivae inflammation, No Eyelid inflammation, No Other, No Redness ENT: No Ear pain, No Ear discharge, No Nose pain, No Nose discharge, No Nose congestion, No Mouth pain, No Mouth swelling, No Throat pain, No Throat swelling, No Other Cardiovascular: No Chest Pain, No Palpitations, No Orthopnea, No Paroxysmal Noc. Dyspnea, No Edema, No Lt Headedness, No Other Respiratory: No Cough, No Dry, No Shortness of breath, No SOB with excertion, No Wheezing, No Hemoptysis, No Pleuritic Pain, No Sputum, No Other Gastrointestinal: No Nausea, No Vomiting, No Abdominal Pain, No Diarrhea, No Constipation, No Melena, No Hematochezia, No Other Genitourinary: No Dysuria, No Frequency, No Incontinence; Hematuria; No Retention; Other (Flank pain) Musculoskeletal: No other, No neck pain, No shoulder pain, No arm pain, No back pain, No hand pain, No leg pain, No foot pain Skin: No Rash, No Lesions, No Jaundice, No Bruising, No Other Objective Vitals Vital Signs Date Time Temp Pulse Resp B/P (MAP) Pulse Ox O2 Delivery O2 Flow Rate FiO2 09/01/24 09:00 98.6 64 20 91/53 (66) 97 98.6 09/01/24 07:30 Room Air* 0 21 Intake/Output Intake and Output 09/01/24 07:00 Intake Total 1850 ml Output Total 1900 ml Balance -50 ml Intake Oral 1800 ml IV Total 50 ml Output Urine Total 1900 ml Medications Current Medications Medications Dose Ordered Sig/Inocencio Route Start Time Stop Time Status Last Admin Dose Admin Ondansetron HCl 4 mg Q4HP PRN IV 08/30/24 10:45 Ketorolac Tromethamine 30 mg Q6HPRN PRN IV 08/30/24 10:45 09/04/24 10:44 08/30/24 23:28 30 MG Morphine Sulfate 4 mg Q6HPRN PRN IV 08/30/24 10:45 08/31/24 00:44 4 MG Ceftriaxone Sodium 50 ml @ 100 mls/hr DAILY@09 IV 11/4/24 09:00 09/01/24 09:28 100 MLS/HR Tamsulosin HCl 0.4 mg BID PO 08/31/24 10:30 09/01/24 09:28 0.4 MG Sodium Chloride 1,000 ml @ 150 mls/hr Q6H40M IV 08/31/24 18:30 09/01/24 07:50 150 MLS/HR Laboratory Results Laboratory Tests 08/30/24 03:29 08/31/24 06:07 Urinalysis Test 08/30/24 03:00 Urine Color Yellow (Yellow) Urine Clarity Turbid (Clear) H Urine pH 5.0 (5.0-9.0) Urine Specific [place] 1.035 (1.001-1.035) Urine Protein 1+ (Negative) H Urine Ketones Negative (Negative) Urine Blood 2+ /uL (Negative) H Urine Nitrite Negative (Negative) Urine Bilirubin Negative (Negative) Urine Urobilinogen 2 mg/dL (Negative) H Urine Leukocyte Esterase Negative /uL (Negative) Urine RBC 1 /hpf (0 - 3) Urine WBC 1 /hpf (0 - 3) Urine Squamous Epithelial Cells Few /hpf (<5) Urine Bacteria None seen /hpf (None Seen) Urine Mucus Moderate (None Seen) Urine Glucose Normal mg/dL (Normal) Microbiology Microbiology Date/Time Source Procedure Growth Status 08/30/24 13:25 Blood Blood Culture - Preliminary NO GROWTH AFTER 24 HOURS OF INCUBATION. Resulted 08/30/24 03:00 Voided Urine Urine Culture - Preliminary Resulted Labs and/or images reviewed: Labs reviewed by me, Image(s) reviewed by me Assessment/Plan Assessment/Plan Acute right renal colic Right proximal ureteral calculus 7 mm x 4 mm with right hydroureteronephrosis, renal ultrasound pending, urology consult by Dr. Fatima appreciated expulsive measures patient says he is feeling better Acute dehydration: IV fluids Urine cultures negative Right kidney ultrasound shows 7 mm calculus at the right UVJ We will await further plan by Urology Plan discussed with: Patient My Orders Orders - ALEX ROMERO MD Procedure Category Date Status Time Sodium Chloride 0.9% PHA 08/31/24 In Process 18:30 Date of Service: Sep 01, 2024 Billing Provider: ALEX ROMERO MD Common Visit Codes: [id number] INP/OBS CARE(HIGH) ALEX ROMERO MD Sep 01, 2024 10:32
[2024-09-02 01:00] VITALS: BP 124/72; PULSE 69; RESP 20; TEMP 97.7; O2SAT 96
[2024-09-02 05:00] VITALS: BP 101/51; PULSE 53; RESP 20; TEMP 98.1; O2SAT 98
[2024-09-02 07:30] VITALS: PULSE 74; RESP 13; O2SAT 97
[2024-09-02 09:00] VITALS: BP 110/68; PULSE 62; RESP 18; TEMP 97.4; O2SAT 99
--- NOTE | 2024-09-02 09:45 | DVHDS2 ---
Discharge Summary Date of Admission Aug 30, 2024 at 10:41 Date of Discharge: Sep 02, 2024 Admitting Diagnosis Right flank pain Wounds: None Labs/Diagnostic Data: Laboratory Results Test 08/31/24 06:07 08/30/24 03:29 08/30/24 03:00 White Blood Count 8.2 10^3/uL (4.4-10.8) Red Blood Count 4.73 10^6/uL (4.5-5.90) Hemoglobin 14.1 g/dL (13.5-17.5) Hematocrit 41.7 % (41.0-53.0) Mean Corpuscular Volume 88.2 fL (80.0-100.0) Mean Corpuscular Hemoglobin 29.9 pg (28.0-32.0) Mean Corpuscular Hemoglobin Concent 33.9 g/dL (32.0-36.0) Red Cell Distribution Width 13.3 % (11.8-14.3) Platelet Count 261 10^3/uL (140-450) Mean Platelet Volume 7.5 fL (6.9-10.8) Neutrophils (%) (Auto) 56.8 % (37.0-80.0) Lymphocytes (%) (Auto) 31.6 % (10.0-50.0) Monocytes (%) (Auto) 8.0 % (0.0-12.0) Eosinophils (%) (Auto) 3.2 % (0.0-7.0) Basophils (%) (Auto) 0.4 % (0.0-2.0) Neutrophils # (Auto) 4.6 10 ^3/uL (1.6-8.6) Lymphocytes # (Auto) 2.6 10 ^3/uL (0.4-5.4) Monocytes # (Auto) 0.7 10 ^3/uL (0-1.3) Eosinophils # (Auto) 0.3 10 ^3/uL (0-0.8) Basophils # (Auto) 0 10 ^3/uL (0-0.2) Nucleated Red Blood Cells 0.1 % Sodium Level 139 mmol/L (136-145) Potassium Level 3.4 mmol/L (3.5-5.1) Chloride Level 106 mmol/L (98-107) Carbon Dioxide Level 24 mmol/L (20-31) Anion Gap 9 (5-15) Blood Urea Nitrogen 8 mg/dL (9-23) Creatinine 0.92 mg/dL (0.700-1.30) Glomerular Filtration Rate Calc 116 mL/min (>90) BUN/Creatinine Ratio 8.7 (10.0-20.0) Serum Glucose 123 mg/dL (74-106) Calcium Level 10.0 mg/dL (8.7-10.4) Urine Color Yellow (Yellow) Urine Clarity Turbid (Clear) Urine pH 5.0 (5.0-9.0) Urine Specific [place] 1.035 (1.001-1.035) Urine Protein 1+ (Negative) Urine Ketones Negative (Negative) Urine Blood 2+ /uL (Negative) Urine Nitrite Negative (Negative) Urine Bilirubin Negative (Negative) Urine Urobilinogen 2 mg/dL (Negative) Urine Leukocyte Esterase Negative /uL (Negative) Urine RBC 1 /hpf (0 - 3) Urine WBC 1 /hpf (0 - 3) Urine Squamous Epithelial Cells Few /hpf (<5) Urine Bacteria None seen /hpf (None Seen) Urine Mucus Moderate (None Seen) Urine Glucose Normal mg/dL (Normal) Other Laboratory Tests 08/31/24 06:07 08/30/24 03:29 Brief Hx & Hospital Course: 29-year-old male came in for right flank pain found to have 7mm by 4 mm proximal right ureteral calculus right hydroureteronephrosis. Treated with the IV fluids Flomax and expulsive measures. Seen by Urology Dr. Fatima patient feels comfortable without any pain at the time of discharge. Cleared by Urology for discharge. Patient he will follow up with Urology in one week. prescription for Flomax and tramadol transmitted to the pharmacy Consults/Reason for consult Urology Dr. Fatima Operations or Procedures CT abdomen pelvis without contrast Condition at Discharge: Fair Final Diagnosis/Problems List Acute right renal colic Right proximal ureteral calculus 7 mm x 4 mm with right hydroureteronephrosis, renal ultrasound pending, urology consult by Dr. Fatima appreciated expulsive measures patient says he is feeling better Acute dehydration: IV fluids Urine cultures negative Right kidney ultrasound shows 7 mm calculus at the right UVJ Discharge Disposition: Home Discharge Instruct/Medications Diet: Regular Activity: Light activity Follow Up/Referral: Follow up with your primary Dr and Urology Dr. Fatima in one week Medications: Flomax Tramadol Transmitted to the pharmacy 35 (Time taken for discharge summary 35 minutes) Discharge Statement: "Patient was advised to return to the ER or call 911 if any headaches, dizziness, shortness of breath, chest pain, abdominal pain, bleeding, fevers, or worsening of medical condition. Patient was counseled about treatment plan, medications, possible side effects, patientverbalized understanding. All questions were answered to the best of my ability. This discharge took greater then 30 minutes in planning, reviewing documentation, counseling the patient, and discussing with other team members." ASSESSMENT ASSESSMENT Hospital Course Improved Assessment Acute right renal colic Right proximal ureteral calculus 7 mm x 4 mm with right hydroureteronephrosis, renal ultrasound pending, urology consult by Dr. Fatima appreciated expulsive measures patient says he is feeling better Acute dehydration: IV fluids Urine cultures negative Right kidney ultrasound shows 7 mm calculus at the right UVJ Date of Service: Sep 02, 2024 Billing Provider: ALEX ROMERO MD Common Visit Codes: [id number] DISCH DAY >30min ALEX ROMERO MD Sep 02, 2024 09:45
[2024-09-02] MEDS ORDERED: TRAM-626 PO (10:56)
[2024-09-02] MEDS ORDERED: TAMS-35 PO (10:56)
[2024-09-02 11:01] VITALS: BP 141/67; PULSE 80; RESP 19; TEMP 98.4; O2SAT 98
[2024-09-02 12:16] VITALS: BP 111/73; PULSE 59; RESP 20; TEMP 97.3; O2SAT 99
== END 2024-09-02 12:14 | disposition home or self-care (01) | DRG 690 ==
LOC: ER 02:51 → OVERFLOW 10:41 → EAST 11:31
PROVIDERS: ADMIT Registered Nurse; ATTEND Family Medicine
DX: N13.6 Pyonephrosis (principal); E66.9 Obesity, unspecified; E86.0 Dehydration; Z88.2 Allergy status to sulfonamides; Z79.899 Other long term (current) drug therapy; Z68.31 Body mass index [BMI] 31.0-31.9, adult
CPT/HCPCS: 36415; 74176; 76775; 80048; 81001; 85025; 87040; 87086; 96374; 96375; 99291; G0378; J1885; J2405

== ENCOUNTER 2024-09-11 08:31 | Emergency (ER) | payer OTHER, MEDICAID ==
[~2024-09-11] VITALS: Ht 182.9 cm; Wt 106.4 kg
[~2024-09-11 08:31] MED LIST changes: +TAMS-35 PO; +TRAM-626 PO
--- NOTE | 2024-09-11 10:24 | ED.PDOC ---
General HPI Comments 29 year old male presents to the ED with chief complaint of flank pain. Patient reports he was seen a week ago in [facility] for right sided flank pain and was diagnosed with a kidney stone to the right kidney. Patient relays that he was admitted for 3 days before being discharged, however, he was never given paperwork for modified duty at work and he was expected to be able to lift 50 lbs boxes as normal, despite still experiencing pain to the right flank. Patient requests paperwork to be placed on modified duty at work. Patient denies any fever, dysuria, hematuria, abdominal pain, or chills. Chief Complaint: Flank Pain Time Seen by MD: 10:20 Primary Care Provider: ARNOLD Wyman notes: Nurses Notes, Medications, Allergies Allergies: Coded Allergies: Sulfa Antibiotics (Verified Allergy, Severe, 12/19/20) Home Meds Active Scripts Tramadol HCl (Tramadol HCl) 50 Mg Tab, 50 MG PO QID PRN, #30 TAB Prov:ALEX ROMERO MD 09/02/24 Tamsulosin Hcl (Flomax) 0.4 Mg Cap, 1 CAP PO DAILY, #15 CAP 11 Refills Prov:ALEX ROMERO MD 09/02/24 Ondansetron Odt 4MG Tab (ZOFRAN PO) 4 Mg Tb, 4 MG PO [id number] PRN for 7 Days, #21 TAB ODT TAB-DISSOLVE IN MOUTH, THEN SWALLOW Prov:OLIVIA DOMINGO MD 06/27/23 Cimetidine (Cimetidine) 400 Mg Tab, 400 MG PO [id number] PRN for 15 Days, #30 TAB Prov:OLIVIA DOMINGO MD 06/27/23 Information Source: Patient Mode of Arrival: Ambulatory Severity: Moderate Inability to void: None Timing: Weeks Duration: Since onset Prehospital treatment: None Onset: Spontaneous Symptoms: None History of: Kidney stone Location: (R) Flank Penile discharge: None Modifying factors: None associated signs and symptoms: Flank Pain Past Medical History PAST MEDICAL HISTORY: Denies Surgical History: Denies all surgeries Family History Family History: Reviewed,noncontributory to illness Social History Smoker: Non-Smoker Alcohol: Occasionally Drugs: Denies Drug Use Lives In: Home Constitutional: denies: chills, diaphoresis, fatigue, fever, malaise, sweats, weakness, others EENTM: denies: blurred vision, double vision, ear bleeding, ear discharge, ear drainage, ear pain, ear ringing, eye pain, eye redness, hearing loss, mouth pain, mouth swelling, nasal discharge, nose bleeding, nose congestion, nose pain, photophobia, tearing, throat pain, throat swelling, voice changes, others Respiratory: denies: cough, hemoptysis, orthopnea, SOB at rest, shortness of breath, SOB with excertion, stridor, wheezing, others Cardiovascular: denies: chest pain, dizzy spells, diaphoresis, Dyspnea on exertion, edema, irregular heart beat, left arm pain, lightheadedness, palpitations, PND, syncope, others Gastrointestinal: denies: abdomen distended, abdominal pain, blood streaked bowels, constipated, diarrhea, dysphagia, difficulty swallowing, hematemesis, melena, nausea, poor appetite, poor fluid intake, rectal bleeding, rectal pain, vomiting, others Genitourinary: reports: flank pain; denies: burning, dysuria, frequency, hematuria, incontinence, penile discharge, penile sore, pain, testicle pain, testicle swelling, urgency, others Neurological: denies: dizziness, fainting, headache, left sided numbness, left sided weakness, numbness, paresthesia, pre-existing deficit, right sided numbness, right sided weakness, seizure, speech problems, tingling, tremors, weakness, others Musculoskeletal: denies: back pain, gout, joint pain, joint swelling, muscle pain, muscle stiffness, neck pain, others Integumetry: denies: bruises, change in color, change in hair/nails, dryness, laceration, lesions, lumps, rash, wounds, others Allergic/Immunocompromised: denies: Difficulty Healing, Frequent Infections, Hives, Itching, others Hematologic/Lymphatic: denies: anemia, blood clots, easy bleeding, easy bruising, swollen glands, others Endocrine: denies: excessive hunger, excessive sweating, excessive thirst, excessive urination, flushing, intolerance to cold, intolerance to heat, unexplained weight gain, unexplained weight loss, others Psychiatric: denies: anxiety, bipolar disorder, depression, hopeless, panic disorder, schizophrenia, sleepless, suicidal, others All Other Systems: Reviewed and Negative Physical Exam General Appearance: Moderate Distress, Normal HEENT: Normal ENT Inspection, PERRL/EOMI Neck: Full Range of Motion, Non-Tender, Normal, Normal Inspection Respiratory: Chest Non-Tender, Lungs Clear, No Accessory Muscle Use, No Respiratory Distress, Normal Breath Sounds Cardiovascular: No Edema, No JVD, No Murmur, No Gallop, Normal Peripheral Pulses, Regular Rate/Rhythm Breast Exam: Deferred Gastrointestinal: No Organomegaly, Non Tender, No Pulsatile Mass, Normal Bowel Sounds, Soft Genitalia: Deferred Pelvic: Deferred Rectal: Deferred Extremities: No calf tenderness, Normal capillary refill, Normal inspection, Normal range of motion, Non-tender, No pedal edema Musculoskeletal : Apperance: Normal Neurologic: Alert, hospice director II-XII nml as Tested, No Motor Deficits, Normal Affect, Normal Mood, No Sensory Deficits Cerebellar Function: Normal Reflexes: Normal Skin: Dry, Normal Color, Warm Peripheral Pulses: 3+ Radial (R), 3+ Radial (L) Lymphatic: No Adenopathy Was a procedure done? Was a procedure done?: No Differential Diagnosis Kidney stone (Female): Musculoskeletal pain, Urinary obstruction, Urolithiasis Kidney stone (Male): Urolithiasis X-Ray, Labs, Meds, VS Vital Signs Date Time Temp Pulse Resp B/P (MAP) Pulse Ox O2 Delivery O2 Flow Rate FiO2 09/11/24 10:55 88 22 97 Room Air 09/11/24 10:55 98.2 88 22 124/77 (93) 97 98.2 09/11/24 08:51 97.9 82 16 126/83 (97) 9 Patient alert. Complaining of flank pain. Has been having this pain for many weeks. Was diagnosed with kidney stone. Reviewed his previous visit. Blood pressure within normal limits. Saturation pristine on room air. Was given prescription of Motrin. No sign of distress pain He only came for medical note. He is ambulating. Abdomen is soft nontender. Explained to the patient. Was told follow up with his primary care physician. Was told to come back if there there is any problem. Time of 1ST Reevaluation: 11:20 Reevaluation 1ST: Unchanged Patient Education/Counseling: Diagnosis, Treatment Family Education/Counseling: No Family Present Departure 1 Departure Time of Disposition: 12:49 Impression: Primary Impression: Musculoskeletal pain Disposition: 01 HOME / SELF CARE / HOMELESS Condition: Good e-Prescriptions Ibuprofen Micronized (MOTRIN TABLET) 600 Mg Tb 600 MG PO TID PRN for 5 Days, #15 TAB *Black box warning-NSAIDS can increase risk of CT & hypertension, GI irritation, ulceration, bleed, perferation. Do not use post cardiac surgery. Use short duration/lowest effective dose. Prov: GI TAPIA MD 09/11/24 Discharged With: Self Critical Care Note Critical Care Time?: No Stability Stability form required: No Heart Score Heart Score: Heart Score Response (Comments) Value History N/A 0 EKG N/A 0 Age N/A 0 Risk Factors N/A 0 Troponin N/A 0 Total 0 I personally scribed for GI TAPIA MD ([email or web address]) on 09/11/24 at 10:24. Electronically submitted by Desmond Cote ([email or web address]). GI TAPIA MD Sep 11, 2024 10:24
[2024-09-11 10:55] VITALS: TEMP 98.2
[2024-09-11] MEDS ORDERED: IBU600T PO (12:50)
[2024-09-11 13:29] VITALS: BP 130/81; PULSE 82; RESP 18; O2SAT 98
== END 2024-09-11 13:31 | disposition home or self-care (01) ==
LOC: ER 08:31
DX: R10.9 Unspecified abdominal pain (principal); Z79.899 Other long term (current) drug therapy